=== PATIENT | male | born 1995 | race African-American/Black ===

== ENCOUNTER 2022-07-13 14:27 | Outpatient (REF) | payer BC, SELFPAY ==
[2022-07-13 15:09] LABS: Influenza A PCR NEGATIVE (Negative); Influenza B PCR NEGATIVE (Negative); Resp Syncy Virus RNA Qual PCR NEGATIVE (Negative); SARS COV2 PCR INHOUSE NEGATIVE (Negative)
== END 2022-07-13 14:28 | disposition home or self-care (01) ==
LOC: HO.LNP 14:27
PROVIDERS: Visit Provider Internal Medicine
DX: R43.9 Unspecified disturbances of smell and taste (principal); J02.9 Acute pharyngitis, unspecified; Z20.822 Contact with and (suspected) exposure to COVID-19
CPT/HCPCS: 0241U

== ENCOUNTER 2022-10-31 10:53 | Outpatient (REF) | payer BC, SELFPAY ==
[2022-10-31 13:29] LABS: MANUAL DIFF FLAG NO
[2022-10-31 13:30] LABS: Basophils Absolute Auto 0.1 X10*3/uL (0.0-0.2); Basophils Percent Auto 0.7 % (0-2); Eosinophils Absolute Auto 0.3 X10*3/uL (0.0-0.4); Eosinophils Percent Auto 3.1 % (0-4); Hematocrit 44.3 % (42.0-52.0); Hemoglobin 15.1 g/dl (14.0-18.0); Imm Gran Abs Auto 0.06 X10*3/uL (0.00-0.03); Imm Gran Pct Auto 0.6 % (0.0-0.4); Lymphocytes Absolute Auto 2.7 X10*3/uL (1.2-4.9); Lymphocytes Percent Auto 27.9 % (20-40); Mean Corpuscular HGB Conc 34.1 g/dl (31.0-36.0); Mean Corpuscular Hemoglobin 29.8 pg (27.0-33.0); Mean Corpuscular Volume 87.4 fL (80.0-98.0); Mean Platelet Volume 9.7 fL (9.4-12.4); Monocytes Absolute Auto 0.7 X10*3/uL (0.1-1.2); Monocytes Percent Auto 7.1 % (2-11); Neutrophils Absolute Auto 5.8 x10*3/uL (2.0-8.3); Neutrophils Percent Auto 60.6 % (45-73); Platelet Count 332 X10*3/uL (160-400); Red Blood Count 5.07 X10*6/uL (4.60-5.80); Red Cell Distribution Width 12.9 % (11.0-16.0); White Blood Count 9.6 X10*3/uL (4.8-10.8)
[2022-10-31 13:35] LABS: Appearance Urine Clear; Color Urine Yellow; Glucose Urine UA Negative (Negative); Leukocyte Esterase Urine Negative (Negative); Nitrite Urine Negative (Negative); Urine Blood Negative (Negative); Urine Ketones Negative (Negative); Urine Protein Negative (Neg-Trace)
[2022-10-31 13:47] LABS: Alanine Aminotransferase 46 U/L (0-40); Albumin Level 4.4 g/dL (3.5-5.0); Alkaline Phosphatase 80 U/L (39-117); Anion Gap 13 (12-20); Aspartate Amino Transferase 30 U/L (5-37); Bilirubin Total 0.6 mg/dL (0.0-1.0); Blood Urea Nitrogen 11 mg/dL (9-16); Calcium 9.6 mg/dL (8.4-10.2); Carbon Dioxide 25 mmol/L (22-29); Chloride 108 mmol/L (96-108); Cholesterol 168 mg/dL; Estimated Glomerular Filt Rate > 60; Glucose Fasting 83 mg/dL (60-99); HDL Cholesterol 32 mg/dL; LDL Cholesterol Calculated 66 mg/dl; Potassium 4.2 mmol/L (3.3-5.1); Sodium 142 mmol/L (135-145); Total Protein 7.7 g/dL (6.5-8.0); Triglycerides 350 mg/dL
[2022-10-31 14:03] LABS: TSH reflex Free T4 0.86 uIU/mL (0.32-4.0)
== END 2022-10-31 10:54 | disposition home or self-care (01) ==
LOC: HO.HMGCLDS 10:53
PROVIDERS: PCP Nurse Practitioner Family; Visit Provider Nurse Practitioner Family
DX: Z00.00 Encounter for general adult medical examination without abnormal findings (principal); R74.8 Abnormal levels of other serum enzymes
CPT/HCPCS: 36415; 80053; 80061; 81003; 84443; 85025

== ENCOUNTER 2022-11-07 13:30 | Outpatient (REF) | payer BC, SELFPAY ==
[2022-11-09 04:40] LABS: HBS Num1 0.84 mIU/mL (0-7.99); HBc Num1 0.06 S/CO (0.00-0.79); HBsAGNum1 0.32 S/CO (0.00-0.99); Hepatitis A Antibody IgM 0.27 Index (0-0.79); Hepatitis B Core Antibody Nonreactive (Nonreactive); Hepatitis B Surface Antigen Negative (Negative); ~Hepatitis A Antibody IgM Nonreactive (Nonreactive); ~Hepatitis B Surface Antibody NONREACTIVE (Nonreactive); ~Hepatitis C Antibody Nonreactive (Nonreactive)
== END 2022-11-07 13:31 | disposition home or self-care (01) ==
LOC: HO.HMGCLDS 13:30
PROVIDERS: PCP Nurse Practitioner Family; Visit Provider Nurse Practitioner Family
DX: R74.8 Abnormal levels of other serum enzymes (principal)
CPT/HCPCS: 36415; 86704; 86706; 86709; 86803; 87340

== ENCOUNTER 2022-11-20 09:03 | Outpatient (REF) | payer BC, SELFPAY ==
--- NOTE | ~2022-11-20 | US_ITS ---
EXAMINATION: US ABDOMEN COMPLETE CLINICAL INFORMATION: Elevated liver enzymes. COMPARISON: None available. TECHNIQUE: Real-time imaging of the abdominal viscera. FINDINGS: PANCREAS: Not well visualized due to bowel gas. ABDOMINAL AORTA: The proximal, mid, and distal segments are normal in caliber. INFERIOR VENA CAVA: Visualized portions are normal. LIVER: The liver is normal in size. The liver contour is normal. Liver echotexture is increased. No focal hepatic lesion. There is no intrahepatic biliary duct dilatation seen. GALLBLADDER: Normal. The gallbladder is physiologically distended without evidence of stones, sludge, polyps, wall thickening or pericholecystic fluid. COMMON BILE DUCT: Normal in caliber measuring 0.40 cm in diameter. RIGHT KIDNEY: Normal. No hydronephrosis. No renal calculi or focal parenchymal lesions. The kidney measures 10.4 cm in maximum dimension. LEFT KIDNEY: Normal. No hydronephrosis. No renal calculi or focal parenchymal lesions. The kidney measures 10.7 cm in maximum dimension. SPLEEN: Normal. The spleen measures 9.9 cm in maximum dimension. FREE FLUID: None. US/US abdomen complete IMPRESSION: Echogenic liver probably representing fatty infiltration. Limited visualization of the pancreas.
== END 2022-11-20 09:04 | disposition home or self-care (01) ==
LOC: HO.HMGCX 09:03
PROVIDERS: PCP Nurse Practitioner Family; Visit Provider Nurse Practitioner Family
DX: R74.8 Abnormal levels of other serum enzymes (principal)
CPT/HCPCS: 76700

== ENCOUNTER 2023-01-11 12:50 | Outpatient (AMB) | payer SELFPAY ==
--- NOTE | 2023-01-11 13:03 | MHC.OFFWIV ---
Intake Vital Signs 01/11/23 13:26 Height 5 ft 3 in BP 102/74 Blood Pressure Location Lt brachial Position Sitting Pulse 74 Pulse Source Pulse Oximeter Temp 98.1 F Temp Source Oral Pulse Oximetry (%) 98 Oxygen Delivery Method Room Air Intake Visit Reasons: EP RT hand Injury [phone] Intake Note: Pt is here to for RT hand Patient Tobacco Use Status: Never used Tobacco Allergies No Known Allergies Allergy (Verified 01/11/23 14:07) Medication List - Last Reconciled 01/11/23 by Alden Castro MD meloxicam 15 mg PO DAILY Do you need a note to return to daycare/school/sports/work: No HPI EP RT hand Injury [phone] HPI Details 27-year-old male presents to the office for a sick visit. 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 He is complaining of pain in the right wrist for the past 4 days. He does not recall if symptoms started after he did some heavy lifting or playing basketball. [facility] Social History Housing: House Patient Tobacco Use Status: Never used Tobacco e-Cigarette/Vaping Use: Never Used Second Hand Smoke Exposure: No service: No Current occupational status: employed Current occupation: [employer] Current occupational exposures/hazards: No Cognitive needs: No Hearing needs: No Vision needs: No Physical Exam Vital Signs: Last Vital Signs Temp 98.1 F 01/11/23 13:26 Pulse 74 01/11/23 13:26 BP 102/74 01/11/23 13:26 Pulse Ox 98 01/11/23 13:26 Oxygen Delivery Method Room Air 01/11/23 13:26 Extrem Other: Right hand: Dorsum: Tenderness over the wrist. Pain on flexion of the hand at the wrist. Assessment & Plan Assessment & Plan (1) Sprain of wrist, right: Code(s): S63.501A - Unspecified sprain of right wrist, initial encounter Plan: X-ray images were personally reviewed by me. No fractures seen. Anti-inflammatories called in. Chema wrap provided. Orders: Orders XR hand wrist RT Today S63.501A - Unspecified sprain of right wrist, initial encounter Medications: New meloxicam 15 mg PO DAILY 14 tabs 0RF Coding Level of Care Code Est Pt Level 4 (18079) Diagnoses Sprain of wrist, right S63.501A
[2023-01-11 13:26] VITALS: BP 102/74; PULSE 74; TEMP 36.7; O2SAT 98
== END 2023-01-11 14:19 | disposition home or self-care (01) ==
PROVIDERS: PCP Nurse Practitioner Family; Visit Provider Internal Medicine
DX: S63.501A Unspecified sprain of right wrist, initial encounter (principal)
CPT/HCPCS: 99214

== ENCOUNTER 2023-01-11 13:50 | Outpatient (REF) | payer BC, SELFPAY ==
--- NOTE | ~2023-01-11 | XR_ITS ---
EXAMINATION: XR HAND AND WRIST, RIGHT CLINICAL INFORMATION: Wrist sprain. Pain. COMPARISON: None available. TECHNIQUE: PA, lateral, and oblique views of the right hand and wrist FINDINGS: No fracture or dislocation. Normal carpal alignment. No significant joint space narrowing or marginal osteophytes. No osseous erosion. No periarticular osteopenia. No abnormal soft tissue calcification. XR/XR hand wrist RT IMPRESSION: Unremarkable examination.
== END 2023-01-11 13:51 | disposition home or self-care (01) ==
LOC: HO.HMGCX 13:50
PROVIDERS: PCP Nurse Practitioner Family; Visit Provider Internal Medicine
DX: S63.501A Unspecified sprain of right wrist, initial encounter (principal)
CPT/HCPCS: 73110; 73130

== ENCOUNTER 2024-11-21 15:54 | Outpatient (AMB) | payer OTHER, SELFPAY ==
[2024-11-21 15:58] VITALS: BP 110/68; PULSE 71; O2SAT 97; BMI 39.9
--- NOTE | 2024-11-21 15:58 | MHC.PC.OV ---
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 Accompanied by: Self / Same As Patient Allergies No Known Allergies Allergy (Verified 11/21/24 15:59) Medication List - Last Reconciled 11/21/24 by ANAND Talley amoxicillin 2,000 mg (4 x 500 mg) PO ONCE 1 day Tobacco use date assessed: 11/21/24 Dental Screening Dental Screen Date: 11/21/24 Did you have a dental visit in the last 12 months?: Yes Did you have a dental problem in the last 6 months where you did not have access to dental care?: No Was dental information given to patient?: Patient has dentist HPI Annual PE HPI Details History of Present Illness The patient is a 28-year-old male presenting with a request for a physical examination. He has a dental procedure scheduled and has previously taken amoxicillin prophylactically before such procedures, though the reason for this is unclear. Approximately four months ago, he underwent an echocardiogram and a bubble study at a different hospital, and the results are pending retrieval. The patient is noted to be obese, and during the examination, a faint systolic heart murmur was detected. His lungs were clear upon auscultation, and the rest of the examination was benign. Health Maintenance Social History Review of Systems Physical Exam General: Cooperative, healthy appearing, comfortable, no acute distress and well developed, obese Orientation: Patient oriented x3 Limitations: No limitations Head: Normal to inspection Ears: Hearing grossly normal bilaterally Nose: Normal external nose present Face and sinus: Normal facial exam Eyes: Appearance normal, both eyes and all related structures Neck: Normal visual inspection and Yes full ROM Respiratory: Normal respiratory effort and able to speak in complete sentences. Clear to auscultation bilaterally Cardiovascular: Regular rate and rhythm. Normal S1 and S2, very faint systolic murmur GI: Normal to inspection. Soft to palpation and nontender : testicles without masses/lesions and no hernias appreciated Skin: No rashes or lesions noted Neuro: Patient oriented x3 Extremities: Normal to inspection Results Plan The patient will be treated prophylactically with antibiotics for his upcoming dental procedure, despite the unclear indication for previous amoxicillin use. Efforts will be made to retrieve the results of the echocardiogram and bubble study conducted four months ago to better understand the necessity of prophylactic antibiotics. Discussion Notes I discussed with the patient the plan to use prophylactic antibiotics for his dental procedure due to his history of previous use, although the exact indication is unclear. I also informed him that I would attempt to obtain the results of his previous echocardiogram and bubble study to clarify the need for such treatment. Patient Instructions - Take prescribed antibiotics before the dental procedure as directed. - Follow up with the clinic to discuss the results of the echocardiogram and bubble study once available. [facility] Surgical History No pertinent past surgical history Social History Housing: House Patient Tobacco Use Status: Never used Tobacco e-Cigarette/Vaping Use: Never Used Second Hand Smoke Exposure: No service: No Current occupational status: employed Current occupation: [employer] Current occupational exposures/hazards: No Cognitive needs: No Hearing needs: No Vision needs: No Questionnaire PHQ-9 Over the last 2 weeks, how often have you been bothered by any of the following problems? 1. Little interest or pleasure in doing things: not at all 2. Feeling down, depressed, or hopeless: not at all 3. Trouble falling or staying asleep, or sleeping too much: not at all 4. Feeling tired or having little energy: not at all 5. Poor appetite or overeating: not at all 6. Feeling bad about yourself - or that you are a failure or have let yourself or your family down: not at all 7. Trouble concentrating on things, such as reading the newspaper or watching television: not at all 8. Moving or speaking so slowly that other people could have noticed. Or the opposite - being so fidgety or restless that you have been moving around a lot more than usual: not at all 9. Thoughts that you would be better off or of hurting yourself in some way: not at all Total score: 0 Depression Screening Interpretation: Negative Depression Screening Done: Yes 82725 - PHQ-9 Billing: Yes Source: Developed by Drs. Lonnie Goodson, Roxana B.Marin Plasencia and colleagues, with an educational wendy from [employer]. Thrive Questionnaire Date Thrive assessed: 11/18/24 I am a: Patient What is your living situation today?: I have a steady place to live Within the past 12 months, did the food you bought not last and you didn't have the money to get more?: Never true Within the past 12 months, did you worry whether your food would run out before you got money to buy more?: Never true Do you have trouble paying for medicines?: No Do you have trouble getting transportation to medical appointments?: No Do you have trouble paying your heating and electricity bill?: No Do you have trouble taking care of your child, family member or friend?: No Do you have trouble with day-to-day activities such as bathing, preparing meals, shopping, managing finances, etc.?: No Are you currently unemployed and looking for a job?: No Are you interested in more education?: Yes Please select the resources that you would like help with: None Currently or been in a relationship where the following occur: No concerns reported THRIVE Score: 0 AUDIT C Alcohol Use Questionnaire (AUDIT-C) 1. How often do you have a drink containing alcohol?: Never 3. How often do you have six or more drinks on one occasion?: Never Total Score: 0 Score Reviewed/Action Taken: Yes JOSHUA-7 AMB Questionnaire JOSHUA-7 Date JOSHUA - 7 assessed: 11/21/24 Feeling nervous, anxious, or on edge: 2 = More than half the days Not being able to stop or control worryin = More than half the days Worrying too much about different things: 2 = More than half the days Trouble relaxin = Several days Being so restless that it is hard to sit still: 1 = Several days Becoming easily annoyed or irritable: 2 = More than half the days Feeling afraid as if something awful might happen: 0 = Not at all Total JOSHUA-7 score (0-4 normal; 5-9 mild; 10-14 moderate; 15-21 severe): 10 Source: Developed by Drs. Lonnie Goodson, Marin Ta and colleagues, with an educational wendy from [employer]. JOSHUA-7 Assessment Billing JOSHUA-7 Assessment Tool: JOSHUA-7 Assessment 29975 Physical exam (Primary Care) Vital Signs: Last Vital Signs Pulse 71 11/21/24 15:58 BP 110/68 11/21/24 15:58 Pulse Ox 97 11/21/24 15:58 Oxygen Delivery Method Room Air 11/21/24 15:58 BMI result Body Mass Index 39.9 Tobacco/Smoking Status: Tobacco use Status Tobacco use date assessed 11/21/24 11/21/24 16:01 Patient Tobacco Use Status Never used Tobacco 11/21/24 16:01 e-Cigarette/Vaping Use Never Used 11/21/24 16:01 PHQ-9: PHQ-9 Score PHQ-9: Total score 0 11/21/24 16:01 Depression Screening Interpretation: Negative Thrive Assessment: Date of Thrive Assessment Date Thrive assessed 11/18/24 11/21/24 16:01 Currently or been in a relationship where the following occur: No concerns reported Coding Level of Care Code Est Pt Prev Care 18-39y(07093) Diagnoses Physical exam Z00.00 Systolic murmur R01.1 Additional Codes JOSHUA-7 Assessment Billing - JOSHUA-7 Assessment Tool: JOSHUA-7 Assessment 81093 ([id number]) PHQ-9 - 25500 - PHQ-9 Billing: Yes ([id number]) Assessment & Plan Assessment & Plan (1) Physical exam: Code(s): Z00.00 - Encounter for general adult medical examination without abnormal findings Category: Medical (2) Systolic murmur: Code(s): R01.1 - Cardiac murmur, unspecified Category: Medical Plan . Orders: Orders Complete Blood Count Auto Diff Today Z00.00 - Encounter for general adult medical examination without abnormal findings Comprehensive [place]. Panel Fast Today Z00.00 - Encounter for general adult medical examination without abnormal findings Lipid Panel Today Z00.00 - Encounter for general adult medical examination without abnormal findings CA echo transthoracic complete Today R01.1 - Cardiac murmur, unspecified TSH reflex Free T4 Today Z00.00 - Encounter for general adult medical examination without abnormal findings UA CC w/rflx Micro + Cult Today Z00.00 - Encounter for general adult medical examination without abnormal findings Medications: New amoxicillin please take 4 tabs approx 1 hr before dental procedures 2,000 mg (4 x 500 mg) PO ONCE 1 day 4 tabs 2RF pre dental
--- OUTSIDE RECORDS SUMMARY | 2024-11-21 18:21 | XMS_ITS | Clinical Summary ---
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 Name Role Phone Unavailable Primary Care Provider Unavailabl e Source Comments PLEASE NOTE, if this patient is a minor, it may be UNLAWFUL to discuss sensitive information that is contained in these records (such as FAMILY PLANNING, MENTAL HEALTH or SUBSTANCE ABUSE) with the minor patient's parent or other person without the patient's specific authorization.[facility] Medications No known medications Active Problems Problem Noted Date Diagnosed Date Heart murmur 04/26/2024 Encounters Date Type Department Care Team Description 08/29/2024 9:00 AM EDT Office Visit [facility] [address] [place] [id number] Lurdes Sanchez Encounter for dental examination (Primary Dx) from Last 3 Months Social History Tobacco Use Types Packs/Day Years Used Date Smoking Tobacco: Never Assessed Social Connections Answer Date Recorded Connectedness 0 04/11/2024 Financial Resource Strain Answer Date R ecorded Financial Resource Strain 0 2023 Stress Answer Date Recorded Stress 0 04/11/2024 Physical Activity Answer Date Recorded Physical Activity 0 04/11/2024 Food Insecurity Answer Date Recorded Food 0 04/11/2024 Transportation Needs Answer Date Record ed Transportation 0 04/11/2024 Housing Stability Answer Date Recorded Housing 0 04/11/2024 Safety and Environment Answer Date Naif rded Safety 0 04/11/2024 Utilities Answer Date Recorded Utilities 0 04/11/2024 Employment Answer Date Recorded Stress 0 04/11/2024 Sex and Gender Information Value Date Recorded Sex Assigned at Not on file Legal Sex Male 8:35 AM PST Gender Identity Not on file Sexual Orientation Not on file Last Filed Vital Signs Vital Sign Reading Time Taken Comments Blood Pressure 123/75 08/29/2024 10:33 AM EDT Pulse 66 08/29/2024 10:33 AM EDT Temperature - - Respiratory Rate - - Oxygen Saturation - - Inhaled Oxygen Concentration - - Weight - - Height - - Body Mass Index - - Plan of Treatment Health Maintenance Due Date Last Done Comments Anxiety Screening 1996 Dental Perio Charting 1996 Dental Prophy 1996 Hepatitis C Screening 1996 Tobacco Screening 1996 HIV Screening 12/02/2011 Imm-Hepatitis B (1 of 3 - 19+ 3-dose series) 6 [id number] ( - 2023- season) 2024 Alcohol and Drug Screen 06/07/2024 Depression Annual Screen 06/07/2024 Imm-Influenza (Season Ended) 2025 Dental BW 08/31/2025 08/29/2024 Dental Examination 08/31/2025 08/29/2024 Imm-DTaP/Tdap/Td (2 - Td or Tdap) 08/28/2026 017 Hypertension Screening (#1) 08/29/2027 Dental FMX/Pano 08/31/2029 08/29/2024 Procedures Procedure Name Priority Date/Time Associated Diagnosis Comments DENTAL CASE MANAGEMENT - MOTIVATIONAL INTV Routine 08/29/2024 9:00 AM EDT Encounter for dental examination INTRAORAL - COMP SERIES OF RADIOGRAPHIC IMAGES Routine 08/29/2024 9:00 AM EDT Encounter for dental examination COMP ORAL EVALUATION - NEW/ESTABLISHED PATIENT Routine 08/29/2024 9:00 AM EDT Encounter for dental examination CARIES RISK ASSESSMENT & DOC FINDING HIGH RISK Routine 08/29/2024 9:00 AM EDT Encounter for dental examination NUTRITIONAL COUNSELING CONTROL OF DENTAL DISEASE Routine 08/29/2024 9:00 AM EDT Encounter for dental examination ORAL HYGIENE INSTRUCTIONS Routine 08/29/2024 9:00 AM EDT Encounter for dental examination ORAL CANCER SCREENING Routine 08/29/2024 9:00 AM EDT Encounter for dental examination CASE PRESENTATION SUBS DTL & EXTENSIVE TX PLN Routine 08/29/2024 9:00 AM EDT Encounter for dental examination 30 B AMALGAM - WISDOM (NON BILLABLE) Routine 08/29/2024 12:00 AM EDT 19 B AMALGAM - WISDOM (NON BILLABLE) Routine 08/29/2024 12:00 AM EDT from Last 3 Months Insurance [place]
== END 2024-11-21 16:32 | disposition home or self-care (01) ==
LOC: HO.HMCC 15:54
PROVIDERS: PCP Nurse Practitioner Family; Visit Provider Nurse Practitioner Family
DX: Z00.00 Encounter for general adult medical examination without abnormal findings (principal); R01.1 Cardiac murmur, unspecified

== ENCOUNTER → 2024-11-21 15:54 | Outpatient (BNVA) | payer OTHER, SELFPAY | PROVIDERS: PCP Nurse Practitioner Family; Visit Provider Nurse Practitioner Family | DX: Z00.00 Encounter for general adult medical examination without abnormal findings (principal); R01.1 Cardiac murmur, unspecified; E66.9 Obesity, unspecified; Z68.39 Body mass index [BMI] 39.0-39.9, adult | CPT/HCPCS: 96127; 99395 ==